=== PATIENT | male | born 1990 | race American Indian/Alaskan Native ===

== ENCOUNTER 2021-06-16 10:55 | Emergency (ER) | payer SELFPAY ==
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
[2021-06-16 18:25] VITALS: BP 128/84
== END 2021-06-16 18:24 | disposition home or self-care (01) ==
LOC: ED 10:55
DX: M54.9 Dorsalgia, unspecified (principal); V89.2XXA Person injured in unspecified motor-vehicle accident, traffic, initial encounter; Y93.89 Activity, other specified; Y92.89 Other specified places as the place of occurrence of the external cause; Y99.8 Other external cause status
CPT/HCPCS: 72100; 99283